=== PATIENT | male | born 1960 | race Two or more races ===

== ENCOUNTER 2022-02-06 17:47 | Emergency (ER) | payer SELFPAY ==
[~2022-02-06] VITALS: Ht 170.2 cm; Wt 73.0 kg
[2022-02-06] MEDS ORDERED: SODIUM CHLORIDE 0.9% 1,000 ML IV ONE (19:15)
[2022-02-06 20:00] VITALS: BP 113/50
[2022-02-06 21:03] LABS: CHLORIDE 94 mEq/L (98-107); HEMATOCRIT. 24.7 % (42.0-52.0); HEMOGLOBIN. 8.6 g/dL (14.0-18.0); MEAN CORPUSCULAR HEMOGLOBIN 36.8 pg (28.0-32.0); MEAN CORPUSCULAR VOLUME 105.3 fL (80.0-94.0); MEAN PLATELET VOLUME 9.2 fl (7.4-10.4); PLATELET 82 x1000/uL (130-400); RED BLOOD CELL COUNT 2.34 mill/uL (4.7-6.1); RED CELL DISTRIBUTION WIDTH 13.6 % (11.6-14.6)
[2022-02-06 21:12] LABS: ETHANOL BLOOD < 10 mg/dL
[2022-02-06 22:18] LABS: PLATELET ESTIMATE DECREASED
[2022-02-06 22:24] LABS: *AMPHETAMINES SCREEN URINE NEGATIVE (NEGATIVE); *BARBITURATES SCREEN URINE NEGATIVE (NEGATIVE); *BENZODIAZEPINES SCREEN URINE NEGATIVE (NEGATIVE); *COCAINE SCREEN URINE NEGATIVE (NEGATIVE); CANNABINOID URINE SCREEN NEGATIVE (NEGATIVE); METHADONE URINE SCREEN NEGATIVE (NEGATIVE); OPIATES URINE SCREEN NEGATIVE (NEGATIVE); PHENCYCLIDINE URINE SCREEN NEGATIVE (NEGATIVE)
== END 2022-02-06 23:42 | disposition home or self-care (01) ==
LOC: ER 17:47
DX: E86.0 Dehydration (principal); F10.10 Alcohol abuse, uncomplicated; Z90.49 Acquired absence of other specified parts of digestive tract; Y90.0 Blood alcohol level of less than 20 mg/100 ml
CPT/HCPCS: 36415; 80053; 80305; 80320; 84484; 85025; 93005; 96360; 99284; J7030; Z7610; G0480